=== PATIENT | male | born 1980 | race Caucasian/White ===

== ENCOUNTER 2018-10-13 15:49 | Emergency (ER) | payer OTHER ==
[2018-10-13 15:58] VITALS: BP 104/71; PULSE 85; RESP 18; TEMP 98
[2018-10-13] MEDS ORDERED: PROPARACAINE 0.5% OPHTH DROPS 15 ML BTL LEFT EYE STA (16:02)
--- NOTE | 2018-10-13 16:17 | ED ---
Eye Problem HPI - General Chief complaint: Eye Problems Stated complaint: Eye contact behind eye Time Seen by Provider: 10/13/18 16:01 Source: patient, RN notes reviewed Mode of arrival: ambulatory Limitations: no limitations - History of Present Illness Initial comments: 38-year-old male presents emergency Department chief complaint of contact in his left eye. Patient states that he wears contacts constantly and states that he attempted to get up but states it feels folded and up in the left side of his eye. Patient reports eye irritation because his been digging in his eye. Patient states he does have some blurred bridge of her he does not have contact in place. He denies any trauma no fevers chills no purulent drainage - Related Data Previous Rx's Medication Instructions Recorded Ibuprofen [Motrin] 600 mg PO Q6HR PRN #40 day 05/06/18 Allergies Allergy/AdvReac Type Severity Reaction Status Date / Time No Known Allergies Allergy Verified 05/06/18 15:11 Review of Systems ROS Statement: Those systems with pertinent positive or pertinent negative responses have been documented in the HPI. ROS Other: All systems not noted in ROS Statement are negative. Past Medical History Past Medical History: No Reported History History of Any Multi-Drug Resistant Organisms: None Reported Additional Past Surgical History / Comment(s): oral stomach and bladder surg as a child vascetomy Past Psychological History: No Psychological Hx Reported Smoking Status: Current every day smoker Past Alcohol Use History: Occasional Past Drug Use History: None Reported General Exam Limitations: no limitations General appearance: alert, in no apparent distress Head exam: Present: atraumatic, normocephalic, normal inspection Eye exam: Present: PERRL, EOMI, conjunctival injection (Injection left). Absent: normal appearance, scleral icterus, periorbital swelling ENT exam: Present: normal exam, normal oropharynx, mucous membranes moist, TM's normal bilaterally Neck exam: Present: normal inspection, full ROM. Absent: tenderness, meningismus, lymphadenopathy Respiratory exam: Present: normal lung sounds bilaterally. Absent: respiratory distress, wheezes, rales, rhonchi, stridor Cardiovascular Exam: Present: regular rate, normal rhythm, normal heart sounds. Absent: systolic murmur, diastolic murmur, rubs, gallop, clicks Neurological exam: Present: alert Skin exam: Present: warm, dry, intact, normal color. Absent: rash Course Vital Signs 10/13/18 15:56 Temperature 98.0 F Pulse Rate 85 Respiratory 18 Rate Blood Pressure 104/71 O2 Sat by Pulse 99 Oximetry Medical Decision Making - Medical Decision Making 38-year-old male presented from for left eye irritation. Patient felt that there is a contact in place this was unable to be visualized I did invert the eyelid, stained with fluorescein dye and Wood's lamp no uptake no abrasion. Patient also evaluated by colleague with no findings. Patient's visual acuity is sightly decreased on the left secondary to no contact lens. Patient advised to rest ice, Tylenol with ophthalmology on Monday and return for any worsening symptoms. Disposition Clinical Impression: Irritation of left eye Disposition: HOME SELF-CARE Condition: Stable Instructions (If sedation given, give patient instructions): Eye Lubricant (Into the eye), Eye Foreign Body (ED) Additional Instructions: Please return to the Emergency Department if symptoms worsen or any other concerns. Is patient prescribed a controlled substance at d/c from ED?: No Referrals: None,Stated [Primary Care Provider] - 1-2 days Arslan Huffman MD [STAFF PHYSICIAN] - 1-2 days Time of Disposition: 16:29
== END 2018-10-13 16:33 | disposition home or self-care (01) ==
LOC: EC 15:49
DX: H57.89 Other specified disorders of eye and adnexa (principal); F17.200 Nicotine dependence, unspecified, uncomplicated
CPT/HCPCS: 99283

== ENCOUNTER 2020-03-13 04:34 | Emergency (ER) | payer OTHER ==
[2020-03-13 04:51] VITALS: BP 122/87; PULSE 60; RESP 16; TEMP 98
[2020-03-13] MEDS ORDERED: FAMOTIDINE 20 MG TAB PO STA (04:57)
[2020-03-13] MEDS ORDERED: predniSONE 20 MG TAB PO STA (04:57)
[2020-03-13] MEDS ORDERED: diphenhydrAMINE 50 MG CAP PO STA (04:57)
--- NOTE | 2020-03-13 05:01 | ED ---
Skin/Abscess/FB HPI - General Chief complaint: Skin/Abscess/Foreign Body Stated complaint: Eyes burning Time Seen by Provider: 03/13/20 04:52 Source: patient Mode of arrival: ambulatory Limitations: no limitations - History of Present Illness Initial comments: This patient is 39-year-old man who presents to be evaluated for a rash to his face. 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 He states that he had a lot of drywall dust on his face around his eyes. When he got home after work he was feeling like his skin was dry so he applied some lotion. This morning he woke from sleep with a feeling like his face was burning and he noted that there was some swelling around his eyes and of his eyelids. The patient does not have any eye symptoms. He denies any change in vision or any foreign body sensation or tearing. MD complaint: rash Onset/Timin -: hour(s) Tetanus Up to Date: yes Location: face Severity: moderate Quality: burning Consistency: constant Improves with: none Worsens with: none Context: none Associated symptoms: denies other symptoms Treatments Prior to Arrival: none - Related Data Previous Rx's Medication Instructions Recorded Ibuprofen [Motrin] 600 mg PO Q6HR PRN #40 day 05/06/18 predniSONE 60 mg PO DAILY #30 tab 03/13/20 Allergies Allergy/AdvReac Type Severity Reaction Status Date / Time No Known Allergies Allergy Verified 05/06/18 15:11 Review of Systems ROS Statement: Those systems with pertinent positive or pertinent negative responses have been documented in the HPI. ROS Other: All systems not noted in ROS Statement are negative. Constitutional: Denies: fever, chills Eyes: Denies: eye pain, eye discharge, vision change ENT: Denies: throat pain, congestion Respiratory: Denies: cough, dyspnea, wheezes Cardiovascular: Denies: chest pain, palpitations Gastrointestinal: Denies: nausea, vomiting Skin: Reports: as per HPI, rash Neurological: Denies: headache Past Medical History Past Medical History: No Reported History History of Any Multi-Drug Resistant Organisms: None Reported Additional Past Surgical History / Comment(s): oral stomach and bladder surg as a child vascetomy Past Psychological History: No Psychological Hx Reported Smoking Status: Current every day smoker Past Alcohol Use History: Occasional Past Drug Use History: None Reported General Exam Limitations: no limitations General appearance: alert, in no apparent distress Head exam: Present: atraumatic, normocephalic Eye exam: Present: PERRL, EOMI, periorbital swelling. Absent: scleral icterus, conjunctival injection ENT exam: Present: normal oropharynx Respiratory exam: Present: normal lung sounds bilaterally. Absent: respiratory distress, wheezes, rales, rhonchi, stridor Cardiovascular Exam: Present: regular rate, normal rhythm, normal heart sounds Skin exam: Present: warm, dry, intact, erythema, urticaria, other (Patient has periorbital erythema/urticarial rash) Course Vital Signs 03/13/20 04:48 Temperature 98 F Pulse Rate 60 Respiratory 16 Rate Blood Pressure 122/87 O2 Sat by Pulse 97 Oximetry Disposition Clinical Impression: Allergic reaction Disposition: HOME SELF-CARE Condition: Good Instructions (If sedation given, give patient instructions): General Allergic Reaction (ED) Prescriptions: predniSONE 60 mg PO DAILY #30 tab Is patient prescribed a controlled substance at d/c from ED?: No Referrals: Nixon Alatorre MD [Primary Care Provider] - 1-2 days
== END 2020-03-13 05:17 | disposition home or self-care (01) ==
LOC: EC 04:34 → SUPCPDRO 04:34 → EC 05:16
DX: L50.9 Urticaria, unspecified (principal); F17.200 Nicotine dependence, unspecified, uncomplicated; T78.49XA Other allergy, initial encounter
CPT/HCPCS: 99283; J7512

== ENCOUNTER 2021-07-13 09:07 | Day surgery (SDC) | payer OTHER ==
[2021-07-13] MEDS ORDERED: LACTATED RINGERS 1,000 ML IV ONE (10:58)
[2021-07-13 11:16] VITALS: RESP 16; TEMP 96.6
[2021-07-13] MEDS ORDERED: PROPOFOL 10 MG/ML 20 ML VIAL IV ONE (12:05)
--- NOTE | 2021-07-13 12:16 | P.PCN ---
Date of Procedure: 07/13/21 Procedure(s) Performed: BRIEF HISTORY: Patient is a 40-year-old, pleasant, male scheduled for an upper endoscopy as a part of evaluation of esophageal food bolus that happened 2 nights ago. The patient into the emergency room at [facility] and was given some glucagon and his symptoms improved and was discharged home. He came back last evening and was not able to have any solid meal and was discharged home with outpatient EGD today. He still feels the base of meat stuck in the lower esophagus and was not able to swallow liquids this morning. On further questioning patient states that he is been having intermittent dysphagia to solids for the last 1 year duration. These episodes of happens once or twice a week. PROCEDURE PERFORMED: Esophagogastroduodenoscopy biopsy. PREOPERATIVE DIAGNOSIS: Intermittent dysphagia to solids and acute food impaction. IV sedation per anesthesia. PROCEDURE: After informed consent was obtained, the patient was brought into the endoscopy unit. IV sedation was administered by Anesthesia under continuous monitoring. Initially the Olympus GIF-140 video endoscope was inserted into the mouth. Esophagus intubated without any difficulty. It was gradually advanced into the stomach and duodenum and carefully examined. The bulb and the second part of the duodenum appeared normal. The scope at this time was withdrawn to the stomach, adequately insufflated with air, and upon careful examination, mucosa of the antrum, body, cardia and the fundus appeared normal. The scope was then withdrawn into the esophagus. Small hiatal hernia noted. The GE junction was located at 39 cm from the incisors. The erosions and one superficial ulceration at the GE junction consistent with LA grade C reflux esophagitis. The mucosa in the distal esophagus appeared slightly thickened and hence biopsies were done to rule out eosinophilic esophagitis. There was early distal esophageal stricture identified but no food bolus noted. The rest of esophagus appeared normal and the patient tolerated the procedure well. IMPRESSION: 1. No evidence of esophageal foreign body. 2. Erosions and ulcerations in the distal esophagus consistent with LA grade C reflux esophagitis 3. Early distal esophageal stricture 4. Small hiatal hernia. RECOMMENDATIONS: The findings of this examination were discussed with the patient as well as his family. He was advised to follow with the biopsy results. He'll be started on omeprazole 20 mg twice daily and follow antrum reflux measures and he'll be seen in office in 6 weeks..
[2021-07-13 12:36] VITALS: BP 111/71; PULSE 78
== END 2021-07-13 12:55 | disposition home or self-care (01) ==
LOC: ORWHC2ENDO 09:07
PROVIDERS: ATTEND Internal Medicine Gastroenterology
DX: K22.2 Esophageal obstruction (principal); K20.90 Esophagitis, unspecified without bleeding; K44.9 Diaphragmatic hernia without obstruction or gangrene; K22.10 Ulcer of esophagus without bleeding; K21.00 Gastro-esophageal reflux disease with esophagitis, without bleeding; F17.200 Nicotine dependence, unspecified, uncomplicated; Z97.2 Presence of dental prosthetic device (complete) (partial)
CPT/HCPCS: 88305; 43239; J2704; 45380